=== PATIENT | female | born 1975 | race Caucasian/White ===

== ENCOUNTER 2016-08-19 22:18 | Emergency (ER) | payer OTHER | END 2016-08-20 02:02 | disposition home or self-care (01) | LOC: ER1 22:18 | DX: S91.332A Puncture wound without foreign body, left foot, initial encounter (principal); F17.210 Nicotine dependence, cigarettes, uncomplicated; G40.909 Epilepsy, unspecified, not intractable, without status epilepticus; Z79.899 Other long term (current) drug therapy; Z23 Encounter for immunization; W45.0XXA Nail entering through skin, initial encounter; Y92.009 Unspecified place in unspecified non-institutional (private) residence as the place of occurrence of the external cause | CPT/HCPCS: 73630; 84703; 90471; 90715; 99283 ==

== ENCOUNTER 2016-11-17 15:52 | Emergency (ER) | payer SELFPAY | END 2016-11-17 16:38 | disposition home or self-care (01) | LOC: ER1 15:52 | DX: H60.92 Unspecified otitis externa, left ear (principal); G40.909 Epilepsy, unspecified, not intractable, without status epilepticus; Z79.899 Other long term (current) drug therapy | CPT/HCPCS: 96372; 99282; J1885 ==

== ENCOUNTER 2017-02-22 16:50 | Emergency (ER) | payer SELFPAY | END 2017-02-22 17:44 | disposition home or self-care (01) | LOC: ER1 16:50 | DX: Z76.0 Encounter for issue of repeat prescription (principal); G40.909 Epilepsy, unspecified, not intractable, without status epilepticus; F17.210 Nicotine dependence, cigarettes, uncomplicated; Z79.899 Other long term (current) drug therapy | CPT/HCPCS: 99281 ==

== ENCOUNTER 2021-06-21 09:06 | Emergency (ER) | payer OTHER ==
[~2021-06-21 09:06] MED LIST: DEPAKOTE500 MG PO; VIMPAT50 MG PO
[2021-06-21 10:34] LABS: HEMOGLOBIN 15.5 gm/dl (12.3-15.3); RED BLOOD COUNT 4.92 M/UL (4.00-5.10); WHITE BLOOD COUNT 9.6 K/UL (4.5-11.0)
[2021-06-21 10:59] LABS: BUN/CREATININE RATIO 24 (0-10)
[2021-06-21] MEDS ORDERED: DEPAKOTE ER500 MG PO (15:11)
== END 2021-06-21 15:35 | disposition home or self-care (01) ==
LOC: ER1 09:06
PROVIDERS: Family Medicine
DX: G40.909 Epilepsy, unspecified, not intractable, without status epilepticus (principal); S09.90XA Unspecified injury of head, initial encounter; S00.83XA Contusion of other part of head, initial encounter; S80.212A Abrasion, left knee, initial encounter; S80.211A Abrasion, right knee, initial encounter; S00.81XA Abrasion of other part of head, initial encounter; R40.0 Somnolence; R77.8 Other specified abnormalities of plasma proteins; M25.462 Effusion, left knee; F17.200 Nicotine dependence, unspecified, uncomplicated; V49.40XA Driver injured in collision with unspecified motor vehicles in traffic accident, initial encounter; W22.11XA Striking against or struck by driver side automobile airbag, initial encounter; Y92.410 Unspecified street and highway as the place of occurrence of the external cause
CPT/HCPCS: 70450; 72125; 73562; 80053; 80307; 81001; 82550; 82553; 83874; 84484; 85025; 93005; 99285; G0480

== ENCOUNTER → 2021-07-22 | Outpatient (CLI) | payer OTHER ==
[~2021-07-22] MED LIST changes: +DEPAKOTE ER500 MG PO
== END ==
LOC: KOH-I 14:45
DX: S83.512A Sprain of anterior cruciate ligament of left knee, initial encounter (principal); R93.6 Abnormal findings on diagnostic imaging of limbs
CPT/HCPCS: 73721

== ENCOUNTER 2021-10-30 02:02 | Inpatient (IN) | payer OTHER ==
[~2021-10-30] VITALS: Ht 165.1 cm; Wt 72.6 kg
[2021-10-30 02:30] LABS: HEMOGLOBIN 14.7 gm/dl (12.3-15.3); RED BLOOD COUNT 4.61 M/UL (4.00-5.10); WHITE BLOOD COUNT 9.6 K/UL (4.5-11.0)
[2021-10-30 03:01] LABS: BUN/CREATININE RATIO 19 (0-10)
[2021-10-30] MEDS ORDERED: DEPAKOTE500 MG PO (11:06)
[2021-10-31 06:28] LABS: WHITE BLOOD COUNT 7.5 K/UL (4.5-11.0)
[2021-10-31 06:32] LABS: HEMOGLOBIN 12.4 gm/dl (12.3-15.3)
[2021-10-31 06:44] LABS: BUN/CREATININE RATIO 17 (0-10)
--- NOTE | 2021-10-31 23:14 | NUR ---
APPROX 2150 EDUCATED PT ON I/S, PT IS VERY FATIGUE, BUT DID ATTEMPT 4-5 TIMES. PLACED IN BED WITH PT AND TOLD HER EVERYTIME SHE AWOKEN TO DO IT MANY TIMES POSSIBLE.
[2021-11-01 05:19] LABS: HEMOGLOBIN 13.8 gm/dl (12.3-15.3)
[2021-11-01 05:31] LABS: BUN/CREATININE RATIO 19 (0-10)
[2021-11-01 05:32] LABS: RED BLOOD COUNT 4.44 M/UL (4.00-5.10); WHITE BLOOD COUNT 11.5 K/UL (4.5-11.0)
--- NOTE | 2021-11-01 15:57 | NUR ---
PT REMAINS LETHARGIC AND DROWSY. WILL NOT EAT OR DRINK AT ALL. DOZES OFF DURING CONVERSATION. PUPILS EQUAL AND REACTIVE. LEFT EYE BLOODSHOT AND SWOLLEN. 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 ANSWERS ALL QUESTIONS APPROPRIATELY AND FOLLOWS COMMANDS. PT SPOKE WITH MD TAYLOR: CONTINUED LETHARGY AND DROWSINESS. NEW ORDERS NOTED. PT TAKEN TO CT AND LABS DRAWN.
[2021-11-02 03:27] LABS: HEMOGLOBIN 13.4 gm/dl (12.3-15.3); RED BLOOD COUNT 4.26 M/UL (4.00-5.10)
[2021-11-03 03:24] LABS: BUN/CREATININE RATIO 24 (0-10)
[2021-11-03 03:36] LABS: HEMOGLOBIN 11.8 gm/dl (12.3-15.3)
[2021-11-03 03:42] LABS: RED BLOOD COUNT 3.82 M/UL (4.00-5.10); WHITE BLOOD COUNT 5.3 K/UL (4.5-11.0)
--- NOTE | 2021-11-03 11:36 | NUR ---
PTS ROOM AIR STAT IS 84%
[2021-11-04 03:00] LABS: HEMOGLOBIN 11.7 gm/dl (12.3-15.3); RED BLOOD COUNT 3.75 M/UL (4.00-5.10); WHITE BLOOD COUNT 4.4 K/UL (4.5-11.0)
[2021-11-04 03:47] LABS: BUN/CREATININE RATIO 17 (0-10)
[2021-11-04] MEDS ORDERED: DEPAKOTE500 MG PO (12:28)
[2021-11-04] MEDS ORDERED: DOXYCYCLINE HYC20 MG PO (12:28)
[2021-11-04] MEDS ORDERED: KEPPRA 500 MG500 MG PO (13:31)
== END 2021-11-04 14:04 | disposition home or self-care (01) | DRG 177 ==
LOC: ER1 02:02 → CDU 06:12 → M/S 06:12
PROVIDERS: Internal Medicine; Student in an Organized Health Care Education/Training Program; ADMIT Internal Medicine
PROC: B24BZZZ Ultrasonography of Heart with Aorta (ICD-10-PCS; principal; 2021-11-02)
DX: J69.0 Pneumonitis due to inhalation of food and vomit (principal); J96.01 Acute respiratory failure with hypoxia; Z20.822 Contact with and (suspected) exposure to COVID-19; E87.2 Acidosis; E87.1 Hypo-osmolality and hyponatremia; S05.10XA Contusion of eyeball and orbital tissues, unspecified eye, initial encounter; W16.012A Fall into swimming pool striking water surface causing other injury, initial encounter; J44.9 Chronic obstructive pulmonary disease, unspecified; F17.210 Nicotine dependence, cigarettes, uncomplicated; K21.9 Gastro-esophageal reflux disease without esophagitis; G40.909 Epilepsy, unspecified, not intractable, without status epilepticus; Z99.81 Dependence on supplemental oxygen; Z90.710 Acquired absence of both cervix and uterus; Z98.891 History of uterine scar from previous surgery
CPT/HCPCS: ECHO; 36415; 36600; 70450; 70486; 70551; 71045; 71046; 72125; 80048; 80053; 80202; 81001; 82140; 82550; 82553; 82803; 83036; 83540; 83550; 83605; 83735; 83880; 84100; 84132; 84484; 85025; 85027; 85379; 85652; 86140; 87040; 87081; 87086; 87278; 93005; 93306; 93970; 94640; 94664; 94667; 94668; 94760; 96374; 96375; 96376; 97161; 97165; 99285; G0480; J1650; J2543; J3370; J7070; Q9967